=== PATIENT | female | born 1985 | race Caucasian/White ===

== ENCOUNTER 2017-03-08 09:44 | Emergency (ER) | payer MEDICARE, OTHER | END 2017-03-08 09:55 | disposition left against medical advice (07) | LOC: FER 09:44 | DX: T40.1X1A Poisoning by heroin, accidental (unintentional), initial encounter (principal); R40.20 Unspecified coma; F11.10 Opioid abuse, uncomplicated; Z88.0 Allergy status to penicillin | CPT/HCPCS: 99284 ==